=== PATIENT | male | born 1980 | race Caucasian/White ===

== ENCOUNTER 2017-02-08 12:41 | Emergency (ER) | payer OTHER ==
[~2017-02-08] VITALS: Ht 185.4 cm; Wt 83.9 kg
[2017-02-08 13:26] VITALS: BP 133/79
== END 2017-02-08 14:10 | disposition home or self-care (01) ==
LOC: ER 12:51
DX: S43.102A Unspecified dislocation of left acromioclavicular joint, initial encounter (principal); V18.4XXA Pedal cycle driver injured in noncollision transport accident in traffic accident, initial encounter; Y93.89 Activity, other specified; Y99.8 Other external cause status; Y92.89 Other specified places as the place of occurrence of the external cause
CPT/HCPCS: 73030